=== PATIENT | female | born 1980 | race Caucasian/White ===

== ENCOUNTER → 2016-05-22 | Outpatient (CLI) | payer OTHER ==
--- NOTE | 2016-05-24 09:43 | SLEEPCENT ---
DATE OF PROCEDURE: 05/22/2016 ORDERED BY: Elisa Hirsch Nocturnal polysomnography was performed for evaluation of sleep apnea syndrome symptoms in this patient with a history of excessive somnolence and nonrestorative sleep. 8 hours and 55 minutes of data were reviewed. There were 490 minutes of sleep identified. Sleep latency was mildly prolonged at 11 minutes. Rapid eye movement (REM) latency was normal at 70 minutes. Sleep architecture was fairly good. There was some fragmentation. 4 to 5 REM periods were swcored. Overall sleep efficiency was 93.3%. The patient's electrocardiogram (EKG) showed a sinus rhythm with an average heart rate of 76 beats per minute. Electroencephalogram (EEG) showed normal waveforms for awake and sleep. There were only 28 respiratory events identified of 10 seconds in duration or greater for an apnea-hypopnea index within the normal range of 3.4. The events were primarily obstructive and hypopneic in description, more associated with the supine posture, but not exclusive to that posture. Arousals from respiratory events when arousals from snoring were included occurred only 1.6 times per hour. There was some limb activity, but arousals from limb events were few. Oxygen saturations remained 90% plus for the study. IMPRESSION: Normal nocturnal polysomnography with supine snoring. RECOMMENDATION: Sleep position retraining for avoidance of supine posture may be sufficient to address the patient's respiratory events. Should symptoms persist or worsen, retesting has been shown more sensitive to identifying mild apneic disease.
== END ==
LOC: M SLEEP 19:42
PROVIDERS: ATTEND Nurse Practitioner Adult Health
DX: R06.83 Snoring (principal)

== ENCOUNTER → 2016-06-01 | Outpatient (CLI) | payer OTHER ==
[2016-06-01 18:45] LABS: ALBUMIN 3.9 GM/DL (3.2-5.2); ALBUMIN/GLOBULIN RATIO 1.26 (1.00-1.93); ALKALINE PHOSPHATASE 67 U/L (45-117); ALT/SGPT 27 U/L (12-78); ANION GAP 6 MEQ/L (8-16); AST/SGOT 14 U/L (15-37); BILIRUBIN,TOTAL 0.4 MG/DL (0.2-1.0); BLOOD UREA NITROGEN 18 MG/DL (7-18); CALCIUM LEVEL 8.6 MG/DL (8.5-10.1); CARBON DIOXIDE LEVEL 28 MEQ/L (21-32); CHLORIDE LEVEL 109 MEQ/L (98-107); CREATININE FOR GFR 0.94 MG/DL (0.55-1.02); FREE T4 1.05 NG/DL (0.76-1.46); GLOMERULAR FILTRATION RATE > 60.0 (>60); GLUCOSE, FASTING 91 MG/DL (70-105); POTASSIUM SERUM 4.6 MEQ/L (3.5-5.1); SODIUM LEVEL 143 MEQ/L (136-145)
[2016-06-03 10:49] LABS: PROGESTERONE 0.3 NG/ML
[2016-06-03 10:51] LABS: ESTRADIOL 54.2 PG/ML; LUTEINIZING HORMONE 10.3 mIU/mL
[2016-06-03 10:52] LABS: FOLLICLE STIMULATING HORMONE 9.4 mIU/mL
== END ==
LOC: M WUC 08:49
PROVIDERS: ATTEND Family Medicine
DX: N92.6 Irregular menstruation, unspecified (principal); R21 Rash and other nonspecific skin eruption

== ENCOUNTER → 2016-06-10 | Outpatient (CLI) | payer OTHER ==
--- NOTE | 2016-06-10 16:48 | REP ---
BILATERAL MAMMOGRAM WITH DIAGNOSTIC MAMMOGRAM LEFT BREAST, AND LEFT BREAST ULTRASOUND: HISTORY: Family history maternal grandmother with breast cancer. Bilateral mammography performed in the ML and CC projections. Reportedly there is a palpable abnormality in the upper outer quadrant of the left breast. That area is marked on the skin with a triangular marker. Spot compression views are obtained. Mild scattered fibroglandular tissue is symmetrical with no evidence of mass, architectural distortion or clustered microcalcifications. Real-time sonographic evaluation of the left breast is performed in the region of the reported palpable abnormality. There is dense fibroglandular tissue present. There is no cystic or solid mass. IMPRESSION: ACR 2 benign. No mass or clustered microcalcifications. There is no mammographic or sonographic evidence of a mass at the site of the reported palpable abnormality in the upper outer quadrant of the left breast. Clinical correlation and followup is recommended. BI-RADS/ACR category 2 mammogram. Benign finding(s). Routine annual screening mammography (for women over age 40). This mammogram was interpreted with the aid of an FDA-approved computer-aided detection system. The patient states she/he had a clinical breast exam in 05/2016. The patient letter being requested is M2. Signed by Marko Cerda MD 06/11/2016 09:25 A
== END ==
LOC: M RAD 15:21
PROVIDERS: ATTEND Family Medicine
DX: R92.8 Other abnormal and inconclusive findings on diagnostic imaging of breast (principal); N64.4 Mastodynia
CPT/HCPCS: 76642; G0204

== ENCOUNTER → 2016-09-15 | Outpatient (REF) | payer OTHER | LOC: M LAB REF 17:33 | PROVIDERS: ATTEND Physician Assistant | DX: R30.0 Dysuria (principal) ==

== ENCOUNTER 2016-11-18 09:59 | Emergency (ER) | payer OTHER ==
[~2016-11-18] VITALS: Ht 167.6 cm; Wt 99.2 kg
[2016-11-18] MEDS ORDERED: WELLTAB38 PO (10:12)
[2016-11-18] MEDS ORDERED: ALBU17IN2 INH (10:12)
[2016-11-18] MEDS ORDERED: METO37.5 PO (10:12)
[2016-11-18 11:06] LABS: BASO % 0.6 % (0.0-1.0); EOS # 0.4 K/mm3 (0.0-0.50); EOS % 5.5 % (0.0-3.0); LARGE UNSTAINED CELL # 0.2 K/mm3 (0.0-0.4); LARGE UNSTAINED CELL % 2.3 % (0.0-4.0); LYMPH # 1.5 K/mm3 (1.5-4.5); LYMPH % 19.4 % (24.0-44.0); MEAN CORPUSCULAR HEMOGLOBIN 31.1 pg (27.0-33.0); MEAN CORPUSCULAR HGB CONC 34.8 g/dl (32.0-36.5); MEAN CORPUSCULAR VOLUME 89.6 fl (80.0-96.0); MONO # 0.3 K/mm3 (0.0-0.8); MONO % 4.4 % (0.0-5.0); NEUTROPHILS # 4.7 K/mm3 (1.8-7.7); NEUTROPHILS % 67.8 % (36.0-66.0); PLATELET COUNT, AUTOMATED 228 k/mm3 (150-450); RED CELL DISTRIBUTION WIDTH 12.8 % (11.5-14.5); WHITE BLOOD COUNT 6.9 K/mm3 (4.0-10.0)
[2016-11-18 11:46] LABS: ANION GAP 7 MEQ/L (8-16); BLOOD UREA NITROGEN 10 MG/DL (7-18); CALCIUM LEVEL 8.7 MG/DL (8.5-10.1); CARBON DIOXIDE LEVEL 23 MEQ/L (21-32); CHLORIDE LEVEL 106 MEQ/L (98-107); CREATININE FOR GFR 0.78 MG/DL (0.55-1.02); GLOMERULAR FILTRATION RATE > 60.0 (>60); GLUCOSE, FASTING 103 MG/DL (70-105); HCG, SERUM QUANTITATIVE 20628 MIU/ML; POTASSIUM SERUM 3.9 MEQ/L (3.5-5.1); SODIUM LEVEL 136 MEQ/L (136-145)
[2016-11-18 12:05] VITALS: BP 130/72
--- NOTE | 2016-11-18 12:13 | REP ---
FIRST TRIMESTER ULTRASOUND: Real-time sonographic evaluation of the gravid uterus performed utilizing transabdominal and endovaginal technique. Single living intrauterine gestation is present, with estimated gestational age of 5 weeks 6 days based on crown-rump length of 3 mm. EDC 07/15/2017. heart rate is 95 beats per minute. There is a small subchorionic hemorrhage identified measuring 1.9 x 1.1 x 1.6 cm. No maternal adnexal region abnormalities are seen. There is no evidence of ovarian torsion, with blood flow seen in each ovary with duplex Doppler evaluation. Signed by Marko Cerda MD 11/18/2016 01:14 P
[2016-11-18] MEDS ORDERED: RHOGAM 300 MCG (1500 IU) INJ (J2790) IM SCH (12:30)
[2016-11-25] MEDS ORDERED: SYMB16INH INH (14:33)
[2016-11-25] MEDS ORDERED: ZYRT10CA PO (14:33)
[2016-11-25] MEDS ORDERED: OXYC1TAB23 PO (16:12)
== END 2016-11-18 13:29 | disposition home or self-care (01) ==
LOC: M ED 09:59
DX: O20.0 Threatened abortion (principal); O10.911 Unspecified pre-existing hypertension complicating pregnancy, first trimester; O99.511 Diseases of the respiratory system complicating pregnancy, first trimester; J45.909 Unspecified asthma, uncomplicated; O99.341 Other mental disorders complicating pregnancy, first trimester; F41.9 Anxiety disorder, unspecified; Z3A.20 20 weeks gestation of pregnancy; Z79.899 Other long term (current) drug therapy
CPT/HCPCS: 36415; 76801; 76817; 80048; 81001; 84702; 85025; 86850; 86901; 87086; 93976; 99282; J2790

== ENCOUNTER → 2016-11-21 | Outpatient (CLI) | payer OTHER ==
[~2016-11-21] MED LIST: ALBU17IN2 INH; METO37.5 PO; OXYC1TAB23 PO; SYMB16INH INH; WELLTAB38 PO; ZYRT10CA PO
== END ==
LOC: M SMT 08:31
PROVIDERS: ATTEND Specialist
DX: N93.8 Other specified abnormal uterine and vaginal bleeding (principal)

== ENCOUNTER → 2016-11-25 | Day surgery (SDC) | payer OTHER ==
[~2016-11-25] MED LIST changes: +DOXYCYCLINE HYCLATE 100 MG TAB PO ONE; +DOXYCYCLINE HYCLATE 100 MG in D5W MINI-BAG PLUS 100 ML IV ONE; +KETOROLAC 60 MG/2 ML VIAL (J1885) As Ordered ONE; +LIDOCAINE 2% INJ 100 MG/5 ML SDV (FOR ANES.) As Ordered ONE; +LR 1,000 ML IV SCH; +MIDAZOLAM INJ 2 MG/2 ML VIAL (J2250) As Ordered ONE; +ONDANSETRON 4MG/2ML VIAL (J2405) As Ordered ONE; +ONDANSETRON 4MG/2ML VIAL (J2405) IV PRN; +PROPOFOL 200 MG/20 ML VIAL As Ordered ONE; +SILVER NITRATE APPLICATOR As Ordered ONE; +dexameTHASONE 4 MG/ML 1ML VIAL (J1100) As Ordered ONE; +fentaNYL 100 MCG/2 ML INJECTION (J3010) As Ordered ONE; +fentaNYL 100 MCG/2 ML INJECTION (J3010) IV PRN
[2016-11-25 15:16] LABS: MEAN CORPUSCULAR HEMOGLOBIN 31.2 pg (27.0-33.0); MEAN CORPUSCULAR HGB CONC 34.6 g/dl (32.0-36.5); MEAN CORPUSCULAR VOLUME 90.1 fl (80.0-96.0); RED CELL DISTRIBUTION WIDTH 12.5 % (11.5-14.5); WHITE BLOOD COUNT 8.1 K/mm3 (4.0-10.0)
[2016-11-25] MEDS: HYDROmorphone HCL 1 MG/ML SYRINGE (J1170) IV PRN ×5 (16:21→17:04)
[2016-11-25] MEDS: PERCOCET 5MG/325MG TAB PO PRN ×2 (16:21→17:03)
[2016-11-25 18:00] VITALS: BP 116/67
--- NOTE | 2016-11-26 16:07 | RO ---
DATE OF PROCEDURE: 11/25/2016 PREOPERATIVE DIAGNOSIS: Missed , embryonic demise, first trimester miscarriage. POSTOPERATIVE DIAGNOSIS: Missed , embryonic demise, first trimester miscarriage. PROCEDURE PERFORMED: Suction D and C. FINDINGS: Uterus sounded to 9 cm. Tissue obtained was grossly inspected and consistent with products of conception. SURGEON: Jd Calvillo DO SEPTIC TANK SERVICE TECHNICIAN: None. ANESTHESIA: General via laryngeal mask airway (LMA). SPECIMENS SENT TO PATHOLOGY: Products of conception/intrauterine tissue. ESTIMATED BLOOD LOSS: 100 mL. FLUIDS REPLACED: 700 mL lactated Ringer's. DRAINS: Sterile in-and-out urinary catheter and 100 mL urine output. COMPLICATIONS: None. PREOPERATIVE ANTIBIOTICS: Doxycycline 1 mg IV x1 given prior to the start of the procedure. INDICATION: The patient is a 36-year-old with recently diagnosed first trimester miscarriage. She has been counseled on available treatment options to include medical, expectant and surgical. She has chosen to proceed with surgical management. Of note, this is the patient's fourth spontaneous miscarriage in the first trimester. Apparently her past physicians have evaluated her for recurrent loss with no significant results. DESCRIPTION OF PROCEDURE: The patient was counseled and consented on risks, benefits, indications and alternatives to the procedure. Informed consent was obtained. She was taken to the operating room with an IV running and placed on the operating table in dorsal supine position. General anesthesia was administered and the airway secured without any difficulty. She was placed in a low lithotomy position. She was prepared and draped in a normal sterile fashion. Time-out was performed per protocol. The blood was drained with an in and out catheter. A sterile speculum was placed with good visualization of cervix. Anterior lip of the cervix was grasped with a single tooth tenaculum and downward traction was applied. The cervix was then sequentially dilated with Ed dilators up to a #20. A size 9 Vacurette was placed transcervically into the intrauterine cavity and suction was applied. Multiple passes of the Vacurette were performed until there was minimal blood and tissue return. The Vacurette was removed and a sharp curette was placed transcervically into the intrauterine cavity and endometrial curettage was performed until gritty texture was noted throughout and no apparent residual tissue was noted. The sharp curette was removed. One additional pass of Vacurette revealed minimal to no tissue and blood returned. Once the Vacurette was removed there was minimal bleeding from the cervical os. The single-tooth tenaculum was removed. The tenaculum sites were cauterized with silver nitrate. Excellent hemostasis was noted. Sponge and instrument counts were correct. The patient tolerated the entire procedure well. All instruments were removed from the vagina. She was transferred to the PACU in good and stable condition.
== END | disposition home or self-care (01) ==
LOC: M SDC 14:10
PROVIDERS: ATTEND Obstetrics & Gynecology
DX: O02.1 Missed abortion (principal); I10 Essential (primary) hypertension; J45.909 Unspecified asthma, uncomplicated; M54.2 Cervicalgia; K50.90 Crohn's disease, unspecified, without complications; Z79.899 Other long term (current) drug therapy
CPT/HCPCS: 36415; 59820; 85027; 86850; 86870; 86900; 86901; 88305; J1100; J1170; J1885; J2250; J2405; J3010

== ENCOUNTER → 2017-07-23 | Outpatient (REF) | payer OTHER ==
[2017-07-23 19:09] LABS: THYROID PEROXIDASE ANTIBODY 54.8 U/ML (<60.0)
[2017-07-23 19:35] LABS: C REACTIVE PROTEIN QUANTITATIV 0.33 MG/DL (0.00-0.30); FERRITIN 31 NG/ML (8-252)
[2017-07-23 19:42] LABS: ERYTHROCYTE SEDIMENTATION RATE 6 mm/hr (0-20)
[2017-07-23 20:17] LABS: ESTIMATED AVERAGE GLUCOSE 100 MG/DL (60-110); HEMOGLOBIN A1c 5.1 %
== END ==
LOC: M LABDRAW1 15:10
DX: R21 Rash and other nonspecific skin eruption (principal); R53.83 Other fatigue; L65.9 Nonscarring hair loss, unspecified
CPT/HCPCS: 84443

== ENCOUNTER 2018-01-07 13:01 | Day surgery (SDC) | payer OTHER ==
[~2018-01-07 13:01] MED LIST changes: -ALBU17IN2 INH; -DOXYCYCLINE HYCLATE 100 MG TAB PO ONE; -DOXYCYCLINE HYCLATE 100 MG in D5W MINI-BAG PLUS 100 ML IV ONE; -KETOROLAC 60 MG/2 ML VIAL (J1885) As Ordered ONE; +LIDOCAINE 2% INJ 100 MG/5 ML SDV (FOR ANES.) As Ordered; -LIDOCAINE 2% INJ 100 MG/5 ML SDV (FOR ANES.) As Ordered ONE; -LR 1,000 ML IV SCH; -METO37.5 PO; -MIDAZOLAM INJ 2 MG/2 ML VIAL (J2250) As Ordered ONE; -ONDANSETRON 4MG/2ML VIAL (J2405) As Ordered ONE; -ONDANSETRON 4MG/2ML VIAL (J2405) IV PRN; -OXYC1TAB23 PO; +PROPOFOL 200 MG/20 ML VIAL As Ordered; -PROPOFOL 200 MG/20 ML VIAL As Ordered ONE; -SILVER NITRATE APPLICATOR As Ordered ONE; -SYMB16INH INH; -WELLTAB38 PO; -ZYRT10CA PO; -dexameTHASONE 4 MG/ML 1ML VIAL (J1100) As Ordered ONE; -fentaNYL 100 MCG/2 ML INJECTION (J3010) As Ordered ONE; -fentaNYL 100 MCG/2 ML INJECTION (J3010) IV PRN
[2018-01-07] MEDS ORDERED: NS 1,000 ML IV (13:15)
== END 2018-01-07 14:42 | disposition home or self-care (01) ==
LOC: M SDC 13:01
DX: R10.9 Unspecified abdominal pain (principal); K50.00 Crohn's disease of small intestine without complications; K58.1 Irritable bowel syndrome with constipation; J45.909 Unspecified asthma, uncomplicated
CPT/HCPCS: 45378

== ENCOUNTER → 2018-01-08 | Outpatient (CLI) | payer OTHER ==
[~2018-01-08] MED LIST changes: +E-Z-GAS II EFFERVESCENT PACKET (SODIUM BICARB./CITRIC ACID/SIMETHICONE) As Ordered; +E-Z-HD 98% w/w 340GM SUSP BTL As Ordered; +E-Z-PAQUE 96% w/w SUSP 176GM BTL As Ordered; -LIDOCAINE 2% INJ 100 MG/5 ML SDV (FOR ANES.) As Ordered; -PROPOFOL 200 MG/20 ML VIAL As Ordered
== END ==
LOC: M RAD 08:34
DX: K50.00 Crohn's disease of small intestine without complications (principal); R10.13 Epigastric pain; K44.9 Diaphragmatic hernia without obstruction or gangrene
CPT/HCPCS: 74245

== ENCOUNTER → 2018-01-20 | Outpatient (CLI) | payer OTHER | LOC: M RAD 07:26 | DX: K50.00 Crohn's disease of small intestine without complications (principal) | CPT/HCPCS: J2805 ==

== ENCOUNTER → 2018-03-14 | Outpatient (REF) | payer OTHER ==
[2018-03-14 22:40] LABS: APPEARANCE, URINE HAZY (CLEAR); BACTERIA, URINE AUTO NEGATIVE (NEGATIVE); BILIRUBIN, URINE AUTO NEGATIVE (NEGATIVE); BLOOD, URINE BLOOD NEGATIVE (NEGATIVE); COLOR, URINE YELLOW (YELLOW); GLUCOSE, URINE (UA) AUTO NEGATIVE (NEGATIVE); KETONE, URINE AUTO TRACE mg/dL (NEGATIVE); LEUKOCYTE ESTERASE, URINE AUTO NEGATIVE (NEGATIVE); MUCUS, URINE SMALL (NEGATIVE); NITRITE, URINE AUTO NEGATIVE (NEGATIVE); PROTEIN, URINE AUTO NEGATIVE (NEGATIVE); RBC, URINE AUTO 0 /HPF (0-3); SPECIFIC GRAVITY URINE AUTO 1.027 (1.002-1.035); SQUAMOUS EPITHELIAL CELL UR AU 1 /HPF (0-6); UROBILINOGEN, URINE AUTO 0.2 mg/dL (0.0-2.0); WBC, URINE AUTO 1 /HPF (0-3)
== END ==
LOC: M LAB REF 21:20
DX: N39.0 Urinary tract infection, site not specified (principal)

== ENCOUNTER → 2018-03-25 | Outpatient (CLI) | payer OTHER | LOC: M RAD 15:42 | DX: R10.30 Lower abdominal pain, unspecified (principal) | CPT/HCPCS: 74176 ==

== ENCOUNTER → 2018-03-25 | Outpatient (REF) | payer OTHER ==
[2018-03-25 18:15] LABS: ALBUMIN 4.2 GM/DL (3.2-5.2); ALKALINE PHOSPHATASE 64 U/L (45-117); ALT/SGPT 49 U/L (12-78); ANION GAP 6 MEQ/L (8-16); AST/SGOT 21 U/L (7-37); BILIRUBIN,TOTAL 0.3 MG/DL (0.2-1.0); BLOOD UREA NITROGEN 22 MG/DL (7-18); C REACTIVE PROTEIN QUANTITATIV < 0.30 MG/DL (0.00-0.30); CALCIUM LEVEL 8.3 MG/DL (8.5-10.1); CARBON DIOXIDE LEVEL 26 MEQ/L (21-32); CHLORIDE LEVEL 106 MEQ/L (98-107); GLOMERULAR FILTRATION RATE > 60.0 (>60); GLUCOSE, FASTING 208 MG/DL (70-100); HEMATOCRIT 41.9 % (36.0-47.0); HEMOGLOBIN 13.8 g/dl (12.0-15.5); LIPASE 104 U/L (73-393); MEAN CORPUSCULAR HEMOGLOBIN 29.4 pg (27.0-33.0); MEAN CORPUSCULAR HGB CONC 32.9 g/dl (32.0-36.5); MEAN CORPUSCULAR VOLUME 89.1 fl (80.0-96.0); PLATELET COUNT, AUTOMATED 253 10^3/uL (150-450); POTASSIUM SERUM 3.9 MEQ/L (3.5-5.1); RED CELL DISTRIBUTION WIDTH 12.3 % (11.5-14.5); SODIUM LEVEL 138 MEQ/L (136-145); WHITE BLOOD COUNT 8.1 10^3/uL (4.0-10.0)
== END ==
LOC: M LAB REF 17:04
DX: R10.30 Lower abdominal pain, unspecified (principal)
CPT/HCPCS: 83690

== ENCOUNTER → 2018-07-11 | Outpatient (REF) | payer OTHER ==
[~2018-07-11] MED LIST changes: +ALBU17IN2 INH; +BUDE3CAP PO; -E-Z-GAS II EFFERVESCENT PACKET (SODIUM BICARB./CITRIC ACID/SIMETHICONE) As Ordered; -E-Z-HD 98% w/w 340GM SUSP BTL As Ordered; -E-Z-PAQUE 96% w/w SUSP 176GM BTL As Ordered; +METO37.5 PO; +ONDA4TAB6; +OXYC1TAB23 PO; +PRED20TA PO; +SAXE1INJ SC; +SYMB16INH INH; +WELLTAB38 PO; +ZYRT10CA PO
== END ==
LOC: M LAB REF 12:40
PROVIDERS: ATTEND Physician Assistant
DX: J02.9 Acute pharyngitis, unspecified (principal)

== ENCOUNTER → 2018-08-15 | Outpatient (REF) | payer OTHER | LOC: M LAB REF 08:44 | PROVIDERS: ATTEND Physician Assistant Medical | DX: N39.0 Urinary tract infection, site not specified (principal) ==

== ENCOUNTER → 2019-11-03 | Outpatient (REF) | payer OTHER ==
[~2019-11-03] MED LIST changes: +PROV108A INH
== END ==
LOC: M SFHCWAGY 15:13
PROVIDERS: ATTEND Advanced Practice Midwife
DX: Z12.4 Encounter for screening for malignant neoplasm of cervix (principal)

== ENCOUNTER → 2021-01-12 | Outpatient (CLI) | payer OTHER ==
--- NOTE | 2021-01-12 13:29 | REPMRS ---
Patient History The patient states she has not had a clinical breast exam in over a year. Family history of breast cancer at age 50 in maternal grandmother. Moderna vaccine right arm. 07/25/20 left arm. Pt denied . Patient states no breast complaints today. Patient has signed MRS History Sheet. Digital Woman Screen Mammo: January 12, 2021 - Exam #: [id number] Bilateral CC and MLO view(s) were taken. Technologist: RT Demond Prior study comparison: June 10, 2016, digital mammo diagnostic bilateral, performed at [facility]. FINDINGS: There are scattered fibroglandular densities. Screening. Digital screening (2D) mammography was performed bilaterally in the CC and MLO projections. Additionally, breast tomosynthesis (3D mammography) was performed bilaterally in the CC and MLO projections. Todays exam was compared to the prior exam/exams. By history, the patient has no complaints of a palpable breast abnormality or other significant breast complaints. The breasts are unchanged in size and shape. There are no vickey-soft tissue densities or spiculated masses. There is no internal architectural distortion. There are no suspicious vickey-calcific clusters. Skin thickening or nipple retraction is not present. IMPRESSION: BI-RADS Category 2- Benign Findings. There is no evidence of malignant alteration of the breasts. Followup examination recommended in one year. The Volpara volumetric breast density category is B, there are scattered areas of fibroglandular densities. This mammogram was read with the assistance of [employer],an FDA approved computer aided detection system for mammography. The lifetime Tyrer-Cuzick score is 20.6 % Due to the density of the breasts or Tyrer Cuzick score of 20% or greater, MRI/whole breast screening ultrasound is warranted. Negative x-ray reports should not delay surgical consultation if a dominant or clinically suspicious mass is present. Not all breast cancers can be identified by mammography. Therefore, we recommend that you continue to perform regular breast self-examination and physical examination and then promptly contact your physician of any concerns or changes. Adenosis and dense breasts may obscure an underlying neoplasm. Assessment: BI-RADS/ACR category 2 mammogram. Benign Findings. Recommendation Routine screening mammogram of both breasts in 1 year. Electronically Signed By: Omar Scales DO 01/12/21 1324
== END ==
LOC: M WHC 10:56
PROVIDERS: ATTEND Physician Assistant
DX: Z12.31 Encounter for screening mammogram for malignant neoplasm of breast (principal); Z80.3 Family history of malignant neoplasm of breast

== ENCOUNTER → 2022-03-25 | Outpatient (CLI) | payer OTHER ==
[~2022-03-25] MED LIST changes: +ALBU6.7H6 INH; -PROV108A INH
== END ==
LOC: M PLAIMG 08:21
PROVIDERS: ATTEND Physician Assistant
DX: M25.559 Pain in unspecified hip (principal)

== ENCOUNTER → 2022-04-12 | Outpatient (CLI) | payer OTHER ==
[~2022-04-12] MED LIST changes: +PROHANCE 279.3MG/ML 15ML VIAL ONE
== END ==
LOC: M PLAIMG 10:40
PROVIDERS: ATTEND Physician Assistant
DX: Z15.01 Genetic susceptibility to malignant neoplasm of breast (principal); Z80.3 Family history of malignant neoplasm of breast
CPT/HCPCS: A9576; C8908

== ENCOUNTER → 2022-07-12 | Outpatient (CLI) | payer OTHER ==
[~2022-07-12] MED LIST changes: -PROHANCE 279.3MG/ML 15ML VIAL ONE
== END ==
LOC: M PLAIMG 08:05
PROVIDERS: ATTEND Orthopaedic Surgery
DX: M76.01 Gluteal tendinitis, right hip (principal); M16.11 Unilateral primary osteoarthritis, right hip

== ENCOUNTER → 2022-08-30 | Outpatient (CLI) | payer OTHER | LOC: M PLAIMG 14:04 | PROVIDERS: ATTEND Orthopaedic Surgery | DX: M16.11 Unilateral primary osteoarthritis, right hip (principal) ==

== ENCOUNTER → 2023-01-17 | Outpatient (CLI) | payer OTHER | LOC: M WHC 13:42 | PROVIDERS: ATTEND Physician Assistant | DX: Z12.31 Encounter for screening mammogram for malignant neoplasm of breast (principal) ==

== ENCOUNTER → 2023-04-04 | Outpatient (CLI) | payer OTHER ==
[2023-04-04 17:13] LABS: BASO # 0.1 10^3/uL (0.0-0.2); BASO % 0.7 % (0.0-1.0); EOS # 0.5 10^3/uL (0.0-0.5); EOS % 5.8 % (0.0-3.0); HEMATOCRIT 43.1 % (36.0-47.0); HEMOGLOBIN 14.2 g/dl (12.0-15.5); LYMPH # 1.4 10^3/uL (1.5-5.0); LYMPH % 16.7 % (24.0-44.0); MEAN CORPUSCULAR HGB CONC 32.9 g/dl (32.0-36.5); MEAN CORPUSCULAR VOLUME 90.9 fl (80.0-96.0); MONO # 0.6 10^3/uL (0.0-0.8); MONO % 7.3 % (2.0-8.0); NEUTROPHILS # 5.6 10^3/uL (1.5-8.5); NEUTROPHILS % 69.1 % (36.0-66.0); PLATELET COUNT, AUTOMATED 291 10^3/uL (150-450); RED BLOOD COUNT 4.74 10^6/uL (4.00-5.40); WHITE BLOOD COUNT 8.1 10^3/uL (4.0-10.0)
[2023-04-04 17:25] LABS: ERYTHROCYTE SEDIMENTATION RATE 17 mm/hr (0-20)
[2023-04-04 17:41] LABS: C REACTIVE PROTEIN QUANTITATIV < 0.40 MG/DL (<1.0)
[2023-04-04 17:42] LABS: ALBUMIN 3.8 G/DL (3.2-5.2); ALKALINE PHOSPHATASE 59 U/L (46-116); ALT/SGPT 38 U/L (7.0-40); AST/SGOT 20 U/L (<34); BILIRUBIN,TOTAL 0.4 MG/DL (0.3-1.2); BLOOD UREA NITROGEN 17 MG/DL (9-23); CALCIUM LEVEL 8.7 MG/DL (8.5-10.1); CARBON DIOXIDE LEVEL 26 MMOL/L (20-31); CHLORIDE LEVEL 105 MMOL/L (98-107); CPK CREATINE PHOSPHOKINASE 114 U/L (34-145); CREATININE FOR GFR 0.75 MG/DL (0.55-1.30); GLOMERULAR FILTRATION RATE > 60.0 (>58); GLUCOSE, FASTING 95 MG/DL (60-100); POTASSIUM SERUM 4.4 MMOL/L (3.5-5.1); SODIUM LEVEL 138 MMOL/L (136-145)
[2023-04-07 15:07] LABS: ANA (HEP2) Positive (.)
== END ==
LOC: M WUC 11:53
PROVIDERS: ATTEND Nurse Practitioner Family
DX: R21 Rash and other nonspecific skin eruption (principal)

== ENCOUNTER → 2023-04-04 | Outpatient (REF) | payer OTHER | LOC: M SFHCPLAZ 11:54 | PROVIDERS: ATTEND Nurse Practitioner Family | DX: Z53.9 Procedure and treatment not carried out, unspecified reason (principal) ==

== ENCOUNTER → 2023-04-11 | Outpatient (CLI) | payer OTHER ==
[2023-04-11 12:31] LABS: COMPLEMENT C3 159.2 MG/DL (90.0-170.0); COMPLEMENT C4 42.1 MG/DL (12-36); IMMUNOGLOBULIN A 186.8 MG/DL (40-350); IMMUNOGLOBULIN G 1187 MG/DL (650-1600); IMMUNOGLOBULIN M 90.4 MG/DL (50-300)
[2023-04-11 13:08] LABS: HIV 1&2 SCREEN NEGATIVE (NEGATIVE)
[2023-04-11 13:16] LABS: HEPATITIS C VIRUS ABY INDEX 0.05 INDEX (<0.8)
[2023-04-11 13:17] LABS: HEPATITIS B CORE ANTIBODY IGM NEGATIVE (NEGATIVE)
== END ==
LOC: M WUC 08:21
PROVIDERS: ATTEND Nurse Practitioner Family
DX: R76.8 Other specified abnormal immunological findings in serum (principal)

== ENCOUNTER → 2023-06-05 | Day surgery (SDC) | payer OTHER ==
[~2023-06-05] VITALS: Ht 167.6 cm; Wt 97.6 kg
[~2023-06-05] MED LIST changes: +ESTR1DIS4 TOP; +FLUO20TA35 PO; +FLUT1BLS8 INH; +KETOROLAC 60MG 2ML VIAL As Ordered ONE; +LIDOCAINE 2% 100MG/5ML SDV (FOR ANES.) As Ordered ONE; +LR 1,000 ML IV SCH; +MAGN400C PO; +MIDAZOLAM INJ 2MG/2ML VIAL As Ordered ONE; +ONDANSETRON 4MG 2ML VIAL As Ordered ONE; +TIRZ2.5P3 SC; +VYVA20CA PO; +[UNRECOGNIZED DRUG - OTHER]; +fentaNYL 100 MCG/2 ML INJECTION As Ordered ONE; +progesterone; +propofoL 200 MG/20 ML VIAL As Ordered ONE
[2023-06-05] MEDS: ceFAZolin SOD 2 GM in IV 1 EA IV ONE (07:36)
[2023-06-05] MEDS: LIDOCAINE 1% MDV 20ML VIAL As Ordered ONE (07:39)
[2023-06-05 09:15] VITALS: BP 122/74; TEMP 97.4; O2SAT 97
== END | disposition home or self-care (01) ==
LOC: M SDC 06:07
PROVIDERS: ATTEND Podiatrist Foot & Ankle Surgery
DX: T84.84XA Pain due to internal orthopedic prosthetic devices, implants and grafts, initial encounter (principal); Y79.2 Prosthetic and other implants, materials and accessory orthopedic devices associated with adverse incidents; J45.909 Unspecified asthma, uncomplicated; K50.90 Crohn's disease, unspecified, without complications; Z79.899 Other long term (current) drug therapy
CPT/HCPCS: 20680; 81025; J0665; J0690; J1100; J1885; J2250; J2405; J3010

== ENCOUNTER → 2023-10-24 | Outpatient (CLI) | payer OTHER ==
[~2023-10-24] MED LIST changes: -KETOROLAC 60MG 2ML VIAL As Ordered ONE; -LIDOCAINE 2% 100MG/5ML SDV (FOR ANES.) As Ordered ONE; -LR 1,000 ML IV SCH; -MIDAZOLAM INJ 2MG/2ML VIAL As Ordered ONE; +ONDA-282; -ONDA4TAB6; -ONDANSETRON 4MG 2ML VIAL As Ordered ONE; +PROHANCE 279.3MG/ML 15ML VIAL ONE; -fentaNYL 100 MCG/2 ML INJECTION As Ordered ONE; -propofoL 200 MG/20 ML VIAL As Ordered ONE
== END ==
LOC: M PLAIMG 08:44
PROVIDERS: ATTEND Physician Assistant
DX: Z15.01 Genetic susceptibility to malignant neoplasm of breast (principal)
CPT/HCPCS: A9576; C8908

== ENCOUNTER → 2023-12-10 | Outpatient (REF) | payer OTHER ==
[~2023-12-10] MED LIST changes: -PROHANCE 279.3MG/ML 15ML VIAL ONE
[2023-12-10 13:09] LABS: APPEARANCE, URINE CLEAR (CLEAR); BACTERIA, URINE AUTO NEGATIVE (NEGATIVE); BILIRUBIN, URINE AUTO NEGATIVE (NEGATIVE); BLOOD, URINE BLOOD 2+ (NEGATIVE); COLOR, URINE YELLOW (YELLOW); GLUCOSE, URINE (UA) AUTO NEGATIVE (NEGATIVE); KETONE, URINE AUTO NEGATIVE (NEGATIVE); LEUKOCYTE ESTERASE, URINE AUTO NEGATIVE (NEGATIVE); NITRITE, URINE AUTO NEGATIVE (NEGATIVE); PROTEIN, URINE AUTO NEGATIVE (NEGATIVE); RBC, URINE AUTO 18 /HPF (0-3); SPECIFIC GRAVITY URINE AUTO 1.013 (1.002-1.035); SQUAMOUS EPITHELIAL CELL UR AU 0 /HPF (0-6); UROBILINOGEN, URINE AUTO 0.2 mg/dL (0.0-2.0); WBC, URINE AUTO 1 /HPF (0-3)
[2023-12-10 14:05] LABS: C REACTIVE PROTEIN QUANTITATIV 1.1 MG/DL (<1.0)
[2023-12-10 14:08] LABS: COMPLEMENT C3 156.7 MG/DL (90.0-170.0); COMPLEMENT C4 45.6 MG/DL (12-36)
== END ==
LOC: M SFHCRHEU 08:53
PROVIDERS: ATTEND Internal Medicine Rheumatology
DX: R76.8 Other specified abnormal immunological findings in serum (principal)

== ENCOUNTER → 2024-02-27 | Outpatient (CLI) | payer OTHER ==
[2024-02-27 11:01] LABS: BASO # 0.1 10^3/uL (0.0-0.2); BASO % 0.8 % (0.0-1.0); EOS # 0.3 10^3/uL (0.0-0.5); EOS % 5.2 % (0.0-3.0); HEMOGLOBIN 13.5 g/dl (12.0-15.5); LYMPH # 1.2 10^3/uL (1.5-5.0); LYMPH % 19.9 % (24.0-44.0); MEAN CORPUSCULAR HEMOGLOBIN 30.3 pg (27.0-33.0); MEAN CORPUSCULAR HGB CONC 32.9 g/dl (32.0-36.5); MEAN CORPUSCULAR VOLUME 91.9 fl (80.0-96.0); MONO # 0.6 10^3/uL (0.0-0.8); MONO % 8.9 % (2.0-8.0); PLATELET COUNT, AUTOMATED 264 10^3/uL (150-450); RED BLOOD COUNT 4.46 10^6/uL (4.00-5.40); WHITE BLOOD COUNT 6.2 10^3/uL (4.0-10.0)
[2024-02-27 11:05] LABS: C REACTIVE PROTEIN QUANTITATIV < 0.40 MG/DL (<1.0)
[2024-02-27 11:07] LABS: ALBUMIN 3.6 G/DL (3.2-5.2); ALKALINE PHOSPHATASE 64 U/L (35-104); ALT/SGPT 17 U/L (7.0-40); AST/SGOT 15 U/L (<34); BILIRUBIN,TOTAL 0.6 MG/DL (0.3-1.2); BLOOD UREA NITROGEN 12 MG/DL (9-23); CALCIUM LEVEL 9.6 MG/DL (8.5-10.1); CARBON DIOXIDE LEVEL 27 MMOL/L (20-31); CHLORIDE LEVEL 108 MMOL/L (98-107); CREATININE FOR GFR 0.79 MG/DL (0.55-1.30); GLOMERULAR FILTRATION RATE > 60.0 (>58); GLUCOSE, FASTING 76 MG/DL (60-100); POTASSIUM SERUM 4.5 MMOL/L (3.5-5.1); SODIUM LEVEL 139 MMOL/L (136-145); TOTAL PROTEIN 6.9 G/DL (5.7-8.2)
[2024-02-27 12:00] LABS: ERYTHROCYTE SEDIMENTATION RATE 6 mm/hr (0-20)
[2024-03-05 16:18] LABS: HLA-B27 Negative (Negative)
== END ==
LOC: M WUC 08:14
PROVIDERS: ATTEND Internal Medicine Rheumatology
DX: R76.8 Other specified abnormal immunological findings in serum (principal); G47.9 Sleep disorder, unspecified; Z87.19 Personal history of other diseases of the digestive system

== ENCOUNTER → 2024-03-24 | Outpatient (REF) | payer OTHER | LOC: M LAB REF 16:34 | PROVIDERS: ATTEND Internal Medicine Gastroenterology | DX: R10.13 Epigastric pain (principal); K50.90 Crohn's disease, unspecified, without complications; K21.9 Gastro-esophageal reflux disease without esophagitis; R05.9 Cough, unspecified; K59.00 Constipation, unspecified ==

== ENCOUNTER → 2024-06-29 | Outpatient (CLI) | payer OTHER | LOC: M PLAIMG 08:47 | PROVIDERS: ATTEND Physician Assistant | DX: J30.9 Allergic rhinitis, unspecified (principal) ==

== ENCOUNTER → 2024-06-29 | Outpatient (CLI) | payer OTHER | LOC: M PLAIMG 08:14 | PROVIDERS: ATTEND Internal Medicine Rheumatology | DX: M46.1 Sacroiliitis, not elsewhere classified (principal); M47.818 Spondylosis without myelopathy or radiculopathy, sacral and sacrococcygeal region; K63.89 Other specified diseases of intestine ==

== ENCOUNTER → 2024-11-26 | Outpatient (CLI) | payer OTHER ==
[2024-11-26 17:39] LABS: BASO # 0.1 10^3/uL (0.0-0.2); BASO % 0.8 % (0.0-1.0); EOS # 0.2 10^3/uL (0.0-0.5); EOS % 3.5 % (0.0-3.0); LYMPH # 1.2 10^3/uL (1.5-5.0); LYMPH % 17.6 % (24.0-44.0); MONO # 0.5 10^3/uL (0.0-0.8); MONO % 8.0 % (2.0-8.0); NEUTROPHILS # 4.6 10^3/uL (1.5-8.5); NEUTROPHILS % 69.8 % (36.0-66.0); PLATELET COUNT, AUTOMATED 266 10^3/uL (150-450)
[2024-11-26 17:44] LABS: LUTEINIZING HORMONE 2.0 mIU/ML
[2024-11-26 17:46] LABS: ALT/SGPT 26.0 U/L (7.0-40); AST/SGOT 30.0 U/L (<34); CALCIUM LEVEL 8.8 MG/DL (8.5-10.1); CARBON DIOXIDE LEVEL 26.0 MMOL/L (20-31); CHLORIDE LEVEL 107.0 MMOL/L (98-107); CREATININE FOR GFR 1.01 MG/DL (0.55-1.30); GLOMERULAR FILTRATION RATE 70.0 (>58); POTASSIUM SERUM 4.2 MMOL/L (3.5-5.1); PROGESTERONE 12.86 NG/ML; SODIUM LEVEL 142.0 MMOL/L (136-145)
[2024-11-26 17:47] LABS: ESTRADIOL 107.6 PG/ML; FREE T4 1.37 NG/DL (0.89-1.76)
== END ==
LOC: M WUC 14:40
PROVIDERS: ATTEND Physician Assistant
DX: Z15.01 Genetic susceptibility to malignant neoplasm of breast (principal); N95.1 Menopausal and female climacteric states

== ENCOUNTER → 2025-01-19 | Outpatient (CLI) | payer OTHER ==
[~2025-01-19] MED LIST changes: +PROHANCE 279.3MG/ML 15ML VIAL ONE
== END ==
LOC: M PLAIMG 11:33
PROVIDERS: ATTEND Pain Medicine Interventional Pain Medicine
DX: M96.1 Postlaminectomy syndrome, not elsewhere classified (principal); M51.369 Other intervertebral disc degeneration, lumbar region without mention of lumbar back pain or lower extremity pain; M48.061 Spinal stenosis, lumbar region without neurogenic claudication
CPT/HCPCS: 72158; A9576